=== PATIENT | female | born 1945 | race Hispanic/Latino ===

== ENCOUNTER 2023-01-12 18:03 | Emergency (ER) | payer MEDICARE ==
[2023-01-12] MEDS ORDERED: Bupivacaine PF 0.5% 30 ML VIAL ONE (19:41)
[2023-01-12] MEDS ORDERED: Lidocaine 1% (PF) 30 ML VIAL ONE (19:41)
== END 2023-01-12 22:34 | disposition home or self-care (01) ==
LOC: CSHERS 18:03
DX: S52.511A Displaced fracture of right radial styloid process, initial encounter for closed fracture (principal); S52.611A Displaced fracture of right ulna styloid process, initial encounter for closed fracture; W16.112A Fall into natural body of water striking water surface causing other injury, initial encounter
CPT/HCPCS: 25565; 99283; J2001; S0020